=== PATIENT | female | born 1950 | race Caucasian/White ===

== ENCOUNTER → 2019-03-19 | Outpatient (CLI) | payer MEDICARE ==
[2019-03-19 10:20] LABS: PLATELET COUNT, AUTOMATED 379 K/uL (150-450)
[2019-03-19 10:53] LABS: LDL CHOLESTEROL 61 mg/dl
== END ==
LOC: LAB 09:57
PROVIDERS: ATTEND Nurse Practitioner Family
DX: R05 Cough (principal); Z82.49 Family history of ischemic heart disease and other diseases of the circulatory system; I34.1 Nonrheumatic mitral (valve) prolapse
CPT/HCPCS: 36415; 82040; 82247; 82310; 82374; 82435; 82465; 82565; 82947; 83718; 84075; 84132; 84155; 84295; 84450; 84460; 84478; 84520; 85025